=== PATIENT | male | born 1960 | race Caucasian/White ===

== ENCOUNTER 2016-12-04 18:10 | Emergency (ER) | payer MEDICARE ==
[~2016-12-04] VITALS: Ht 170.2 cm; Wt 48.6 kg
[~2016-12-04 18:10] MED LIST: CLON1TAB23 PO; VILA40TA PO
[2016-12-04 18:30] VITALS: BP 135/78
== END 2016-12-04 19:24 | disposition home or self-care (01) ==
LOC: ED 19:18
DX: J30.2 Other seasonal allergic rhinitis (principal); J45.909 Unspecified asthma, uncomplicated; K21.9 Gastro-esophageal reflux disease without esophagitis
CPT/HCPCS: 99282

== ENCOUNTER 2018-02-03 17:01 | Inpatient (IN) | payer MEDICARE ==
[~2018-02-03] VITALS: Ht 170.2 cm; Wt 61.9 kg
[2018-02-03] MEDS ORDERED: SODIUM CHLORIDE 0.9% 1,000 ML IV ONE (17:31)
[2018-02-03 17:54] LABS: BASOPHILS # (AUTO) 0.03 x10^3/uL (0-0.1); BASOPHILS % (AUTO) 1 % (0-1); EOSINOPHILS # (AUTO) 0.05 x10^3/uL (0-0.4); EOSINOPHILS % (AUTO) 1 % (1-7); LYMPHOCYTES # (AUTO) 2.13 x10^3/uL (1-3.4); LYMPHOCYTES % (AUTO) 32 % (22-44); MD NO; MEAN CORPUSCULAR HEMOGLOBIN 31.7 pg (27.5-34.5); MEAN CORPUSCULAR HGB CONC 34.4 g/dL (33.2-36.2); MEAN CORPUSCULAR VOLUME 92.2 fL (81-97); MEAN PLATELET VOLUME 7.6 fL (7.4-10.4); MONOCYTES # (AUTO) 0.48 x10^3/uL (0.2-0.8); MONOCYTES % (AUTO) 7 % (2-9); NEUTROPHILS # (AUTO) 3.92 x10^3/uL (1.8-6.8); NEUTROPHILS % (AUTO) 59 % (42-75); PLATELET COUNT 285 x10^3/uL (130-400); RED BLOOD COUNT 3.91 x10^6/uL (4.38-5.82); RED CELL DISTRIBUTION WIDTH 14.1 % (9.4-14.8)
[2018-02-03 18:05] LABS: ALANINE AMINOTRANSFERASE 19 U/L (12-78); ALBUMIN 3.1 g/dL (3.4-5.0); ANION GAP 6 mmol/L (5-15); CALCIUM 8.4 mg/dL (8.5-10.1); CHLORIDE 107 mmol/L (98-107); CREATININE 0.82 mg/dL (0.7-1.3)
[2018-02-03 18:32] LABS: ALKALINE PHOSPHATASE 59 U/L (45-117); BILIRUBIN,TOTAL 0.2 mg/dL (0.2-1.0); TOTAL PROTEIN 6.8 g/dL (6.4-8.2)
[2018-02-03] MEDS ORDERED: SODIUM CHLORIDE FLUSH 10ML SYR IVF ONE (19:00)
[2018-02-03 20:45] LABS: MICROSCOPIC NOT IND
[2018-02-03 20:53] LABS: CULTURE INDICATED? NO
[2018-02-03] MEDS ORDERED: [UNRECOGNIZED DRUG - CODE] PO (21:35)
[2018-02-03] MEDS ORDERED: [UNRECOGNIZED DRUG - OTHER] (21:35)
[2018-02-03] MEDS ORDERED: DOLU50TA PO (21:35)
[2018-02-03] MEDS ORDERED: FLUD0.1T PO (21:35)
[2018-02-03 21:45] VITALS: BP 110/68
[2018-02-03] MEDS: SODIUM CHLORIDE 1 GM TABLET PO SCH (22:46)
[2018-02-04] MEDS ORDERED: OMEP20TA9 PO (01:51)
[2018-02-04] MEDS ORDERED: METO5TAB57 PO (01:51)
[2018-02-04 02:25] VITALS: BP 111/65
[2018-02-04 07:05] VITALS: BP_SYST 100; BP_SYST 110; BP_DIAS 59; BP_DIAS 64
[2018-02-04] MEDS: FLUDROCORTISONE 0.1 MG TABLET PO SCH (07:57)
[2018-02-04] MEDS: CYANOCOBALAMIN 1,000 MCG TABLET PO SCH (07:57)
[2018-02-04] MEDS: SODIUM CHLORIDE 1 GM TABLET PO SCH ×3 (07:57→16:43)
[2018-02-04] MEDS: EMTRICITABINE/TENOFOV ALAFENAM 200-25 TAB PO SCH (07:58)
[2018-02-04] MEDS: DOLUTEGRAVIR 50MG TAB PO SCH (07:58)
[2018-02-04] MEDS: TEMPLATE NON-FORMULARY MED. (Vilazodone Hydrochloride** (Viibryd**) 40 MG) PO SCH (07:58)
[2018-02-04] MEDS: ENOXAPARIN 40 MG/0.4 ML SQ SCH (12:13)
[2018-02-04 14:34] VITALS: BP 107/61
[2018-02-04 19:10] VITALS: BP 94/56
[2018-02-05 00:35] VITALS: BP 102/59
[2018-02-05] MEDS: ASPIRIN 81 MG TABLET EC PO SCH (06:10)
[2018-02-05 06:25] VITALS: BP 98/54
[2018-02-05] MEDS: TEMPLATE NON-FORMULARY MED. (Vilazodone Hydrochloride** (Viibryd**) 40 MG) PO SCH (09:00)
[2018-02-05] MEDS: CYANOCOBALAMIN 1,000 MCG TABLET PO SCH (09:12)
[2018-02-05] MEDS: SODIUM CHLORIDE 1 GM TABLET PO SCH ×3 (09:12→16:38)
[2018-02-05] MEDS: DOLUTEGRAVIR 50MG TAB PO SCH (09:12)
[2018-02-05] MEDS: FLUDROCORTISONE 0.1 MG TABLET PO SCH (09:12)
[2018-02-05] MEDS: EMTRICITABINE/TENOFOV ALAFENAM 200-25 TAB PO SCH (09:12)
[2018-02-05] MEDS: ENOXAPARIN 40 MG/0.4 ML SQ SCH (09:13)
[2018-02-05 13:18] VITALS: BP 108/61
[2018-02-05] MEDS: NICOTINE 21 MG/24 HR PATCH.TD24 TD SCH (16:39)
[2018-02-05 19:36] VITALS: BP 104/60
[2018-02-06 01:03] VITALS: BP 109/70
[2018-02-06] MEDS: ASPIRIN 81 MG TABLET EC PO SCH (06:00)
[2018-02-06 06:40] VITALS: BP 111/68
[2018-02-06] MEDS: TEMPLATE NON-FORMULARY MED. (Vilazodone Hydrochloride** (Viibryd**) 40 MG) PO SCH (09:00)
[2018-02-06] MEDS ORDERED: MAGNESIUM HYDROXIDE 8%, 30ML UDC PO PRN (10:00)
[2018-02-06] MEDS: DOLUTEGRAVIR 50MG TAB PO SCH (10:19)
[2018-02-06] MEDS: EMTRICITABINE/TENOFOV ALAFENAM 200-25 TAB PO SCH (10:19)
[2018-02-06] MEDS: CYANOCOBALAMIN 1,000 MCG TABLET PO SCH (10:19)
[2018-02-06] MEDS: SODIUM CHLORIDE 1 GM TABLET PO SCH ×3 (10:19→16:30)
[2018-02-06] MEDS: NICOTINE 21 MG/24 HR PATCH.TD24 TD SCH (10:20)
[2018-02-06] MEDS: FLUDROCORTISONE 0.1 MG TABLET PO SCH (10:20)
[2018-02-06] MEDS: DOCUSATE 100 MG CAPSULE PO SCH ×2 (10:22→19:47)
[2018-02-06 12:45] VITALS: BP 98/62
[2018-02-06] MEDS: ENOXAPARIN 40 MG/0.4 ML SQ SCH (16:28)
[2018-02-06 19:48] VITALS: BP 108/51
[2018-02-07] MEDS ORDERED: DIPHENHYDRAMINE 25 MG CAPSULE PO ONE
[2018-02-07 04:56] VITALS: BP 114/68
[2018-02-07 07:43] VITALS: BP 118/71
[2018-02-07] MEDS: CYANOCOBALAMIN 1,000 MCG TABLET PO SCH (08:36)
[2018-02-07] MEDS: DOCUSATE 100 MG CAPSULE PO SCH ×2 (08:36→20:03)
[2018-02-07] MEDS: FLUDROCORTISONE 0.1 MG TABLET PO SCH (08:36)
[2018-02-07] MEDS: SODIUM CHLORIDE 1 GM TABLET PO SCH ×3 (08:36→17:24)
[2018-02-07] MEDS: EMTRICITABINE/TENOFOV ALAFENAM 200-25 TAB PO SCH (08:36)
[2018-02-07] MEDS: DOLUTEGRAVIR 50MG TAB PO SCH (08:36)
[2018-02-07] MEDS: NICOTINE 21 MG/24 HR PATCH.TD24 TD SCH (08:37)
[2018-02-07] MEDS: TEMPLATE NON-FORMULARY MED. (Vilazodone Hydrochloride** (Viibryd**) 40 MG) PO SCH (09:00)
[2018-02-07] MEDS: OMEPRAZOLE 20 MG CAPSULE.DR PO SCH (10:22)
[2018-02-07] MEDS: ENOXAPARIN 40 MG/0.4 ML SQ SCH (12:19)
[2018-02-07 13:14] VITALS: BP 106/66
[2018-02-07 19:02] VITALS: BP 111/62
[2018-02-07] MEDS: ACETAMINOPHEN 325 MG TABLET PO PRN (20:03)
[2018-02-08 03:00] VITALS: BP 118/60
[2018-02-08 07:04] VITALS: BP 110/69
[2018-02-08] MEDS: CYANOCOBALAMIN 1,000 MCG TABLET PO SCH (08:55)
[2018-02-08] MEDS: ENOXAPARIN 40 MG/0.4 ML SQ SCH (08:55)
[2018-02-08] MEDS: DOLUTEGRAVIR 50MG TAB PO SCH (08:55)
[2018-02-08] MEDS: EMTRICITABINE/TENOFOV ALAFENAM 200-25 TAB PO SCH (08:55)
[2018-02-08] MEDS: DOCUSATE 100 MG CAPSULE PO SCH ×2 (08:55→22:09)
[2018-02-08] MEDS: OMEPRAZOLE 20 MG CAPSULE.DR PO SCH (08:55)
[2018-02-08] MEDS: SODIUM CHLORIDE 1 GM TABLET PO SCH ×3 (08:55→16:56)
[2018-02-08] MEDS: NICOTINE 21 MG/24 HR PATCH.TD24 TD SCH (08:56)
[2018-02-08] MEDS: FLUDROCORTISONE 0.1 MG TABLET PO SCH (08:59)
[2018-02-08] MEDS: TEMPLATE NON-FORMULARY MED. (Vilazodone Hydrochloride** (Viibryd**) 40 MG) PO SCH (08:59)
[2018-02-08] MEDS: ACETAMINOPHEN 325 MG TABLET PO PRN ×2 (12:07→23:23)
[2018-02-08 13:21] VITALS: BP 110/71
[2018-02-08] MEDS ORDERED: DOCU-131 PO (15:38)
[2018-02-08] MEDS ORDERED: CYAN10005 PO (15:38)
[2018-02-08 19:41] VITALS: BP 113/63
[2018-02-09 01:04] VITALS: BP 105/62
[2018-02-09 08:05] VITALS: BP 123/68
[2018-02-09] MEDS: DOCUSATE 100 MG CAPSULE PO SCH (09:11)
[2018-02-09] MEDS: EMTRICITABINE/TENOFOV ALAFENAM 200-25 TAB PO SCH (09:11)
[2018-02-09] MEDS: OMEPRAZOLE 20 MG CAPSULE.DR PO SCH (09:11)
[2018-02-09] MEDS: TEMPLATE NON-FORMULARY MED. (Vilazodone Hydrochloride** (Viibryd**) 40 MG) PO SCH (09:11)
[2018-02-09] MEDS: FLUDROCORTISONE 0.1 MG TABLET PO SCH (09:11)
[2018-02-09] MEDS: DOLUTEGRAVIR 50MG TAB PO SCH (09:11)
[2018-02-09] MEDS: SODIUM CHLORIDE 1 GM TABLET PO SCH ×2 (09:11→12:31)
[2018-02-09] MEDS: NICOTINE 21 MG/24 HR PATCH.TD24 TD SCH (09:12)
[2018-02-09] MEDS: CYANOCOBALAMIN 1,000 MCG TABLET PO SCH (09:12)
[2018-02-09] MEDS: ACETAMINOPHEN 325 MG TABLET PO PRN (09:15)
[2018-02-09] MEDS: ENOXAPARIN 40 MG/0.4 ML SQ SCH (12:23)
[2018-02-09] MEDS ORDERED: DOLU50TA PO (13:28)
[2018-02-09] MEDS ORDERED: EMTR1TAB14 PO (13:28)
== END 2018-02-09 12:50 | DRG 640 ==
LOC: ED 17:55 → EDIP 19:54 → 3NE 21:21
PROVIDERS: ADMIT Internal Medicine; ATTEND Internal Medicine
DX: R62.7 Adult failure to thrive (principal); B20 Human immunodeficiency virus [HIV] disease; C43.9 Malignant melanoma of skin, unspecified; C79.9 Secondary malignant neoplasm of unspecified site; E44.1 Mild protein-calorie malnutrition; D64.9 Anemia, unspecified; F02.80 Dementia in other diseases classified elsewhere, unspecified severity, without behavioral disturbance, psychotic disturbance, mood disturbance, and anxiety; D18.00 Hemangioma unspecified site; I95.1 Orthostatic hypotension; E53.8 Deficiency of other specified B group vitamins; F17.200 Nicotine dependence, unspecified, uncomplicated; G89.29 Other chronic pain; J45.909 Unspecified asthma, uncomplicated; K21.9 Gastro-esophageal reflux disease without esophagitis; Z86.73 Personal history of transient ischemic attack (TIA), and cerebral infarction without residual deficits; Z63.8 Other specified problems related to primary support group; K59.00 Constipation, unspecified; Z79.82 Long term (current) use of aspirin; Z91.14 Patient's other noncompliance with medication regimen
CPT/HCPCS: 36415; 70450; 71045; 72128; 80053; 81003; 82306; 82607; 83735; 84134; 84443; 85025; 86361; 87536; 93005; 99285; J1650; J7030; Q0163

== ENCOUNTER 2018-04-21 11:59 | Emergency (ER) | payer MEDICARE ==
[~2018-04-21] VITALS: Ht 177.8 cm; Wt 54.5 kg
[~2018-04-21 11:59] MED LIST changes: +CYAN10005 PO; +DOCU-131 PO; +DOLU50TA PO; +EMTR1TAB14 PO; +FLUD0.1T PO; +METO5TAB57 PO; +OMEP20TA9 PO; +[UNRECOGNIZED DRUG - CODE] PO; +[UNRECOGNIZED DRUG - OTHER]
[2018-04-21 12:27] LABS: BASOPHILS # (AUTO) 0.03 x10^3/uL (0-0.1); BASOPHILS % (AUTO) 0 % (0-1); EOSINOPHILS # (AUTO) 0.01 x10^3/uL (0-0.4); EOSINOPHILS % (AUTO) 0 % (1-7); LYMPHOCYTES # (AUTO) 2.08 x10^3/uL (1-3.4); LYMPHOCYTES % (AUTO) 18 % (22-44); MD NO; MEAN CORPUSCULAR HGB CONC 34.6 g/dL (33.2-36.2); MEAN CORPUSCULAR VOLUME 89.8 fL (81-97); MEAN PLATELET VOLUME 7.7 fL (7.4-10.4); MONOCYTES # (AUTO) 0.71 x10^3/uL (0.2-0.8); MONOCYTES % (AUTO) 6 % (2-9); NEUTROPHILS # (AUTO) 8.92 x10^3/uL (1.8-6.8); NEUTROPHILS % (AUTO) 76 % (42-75); PLATELET COUNT 298 x10^3/uL (130-400); RED BLOOD COUNT 4.25 x10^6/uL (4.38-5.82); RED CELL DISTRIBUTION WIDTH 14.8 % (9.4-14.8)
[2018-04-21] MEDS ORDERED: SODIUM CHLORIDE FLUSH 10ML SYR IVF ONE (12:30)
[2018-04-21] MEDS ORDERED: SODIUM CHLORIDE 0.9% 1,000ML IVBOLUS ONE ×2 (12:30→13:00)
[2018-04-21 12:38] LABS: ALANINE AMINOTRANSFERASE 29 U/L (12-78); ALBUMIN 3.8 g/dL (3.4-5.0); ANION GAP 16 mmol/L (5-15); CALCIUM 9.2 mg/dL (8.5-10.1); CHLORIDE 101 mmol/L (98-107); CREATININE 1.33 mg/dL (0.7-1.3)
[2018-04-21 12:41] LABS: ALKALINE PHOSPHATASE 74 U/L (45-117); BILIRUBIN,TOTAL 0.7 mg/dL (0.2-1.0); CREATINE KINASE, TOTAL 732 U/L (39-308); TOTAL PROTEIN 8.1 g/dL (6.4-8.2)
[2018-04-21] MEDS ORDERED: DEXTROSE 50%, 50ML SYRINGE IVPush ONE (13:30)
[2018-04-21 14:39] VITALS: BP 124/67
[2018-04-21 15:45] LABS: MICROSCOPIC AUTO
[2018-04-21 15:59] LABS: AMPHETAMINE SCREEN, URINE Positive (Negative); BARBITURATE SCREEN, URINE Negative (Negative); BENZODIAZEPINE SCREEN, URINE Negative (Negative); CANNABINOID SCREEN, URINE Negative (Negative); COCAINE SCREEN, URINE Negative (Negative)
[2018-04-21 16:01] LABS: METHADONE SCREEN, URINE Negative (Negative); OPIATE SCREEN, URINE Negative (Negative)
[2018-04-21 16:04] LABS: CULTURE INDICATED? NO
== END 2018-04-21 16:43 | disposition home or self-care (01) ==
LOC: ED 13:16
DX: E86.0 Dehydration (principal); E16.2 Hypoglycemia, unspecified; B20 Human immunodeficiency virus [HIV] disease; K21.9 Gastro-esophageal reflux disease without esophagitis; J45.909 Unspecified asthma, uncomplicated; Z88.8 Allergy status to other drugs, medicaments and biological substances; Z86.73 Personal history of transient ischemic attack (TIA), and cerebral infarction without residual deficits; Z85.048 Personal history of other malignant neoplasm of rectum, rectosigmoid junction, and anus; Z79.899 Other long term (current) drug therapy
CPT/HCPCS: 36415; 80053; 80307; 81001; 82550; 82962; 83735; 85025; 93005; 96360; 96361; 99285; J7030

== ENCOUNTER 2018-07-09 14:45 | Emergency (ER) | payer MEDICARE ==
[~2018-07-09] VITALS: Ht 170.2 cm; Wt 60.2 kg
[2018-07-09 18:25] VITALS: BP 129/77
== END 2018-07-09 18:27 | disposition home or self-care (01) ==
LOC: ED 18:11
DX: S02.2XXA Fracture of nasal bones, initial encounter for closed fracture (principal); S02.40DA Maxillary fracture, left side, initial encounter for closed fracture; K21.9 Gastro-esophageal reflux disease without esophagitis; F17.200 Nicotine dependence, unspecified, uncomplicated; Z86.73 Personal history of transient ischemic attack (TIA), and cerebral infarction without residual deficits; Z21 Asymptomatic human immunodeficiency virus [HIV] infection status; X58.XXXA Exposure to other specified factors, initial encounter; Y93.89 Activity, other specified; Y99.8 Other external cause status; Y92.009 Unspecified place in unspecified non-institutional (private) residence as the place of occurrence of the external cause
CPT/HCPCS: 70486; 99284

== ENCOUNTER 2019-03-21 07:49 | Emergency (ER) | payer MEDICARE ==
[~2019-03-21] VITALS: Ht 170.2 cm; Wt 52.5 kg
--- NOTE | 2019-03-21 07:49 | NUR ---
[place] & c/o right hip/bilat foot pain with "another episode of disassociative amnesia", AOx4 & denies injury but does not recall why found in current circumstances; BG 101, no other interventions [employer] per EMS; pt alking to self at times but responds approp to staff, NAD, comfort measures provided, call light within reach.
--- NOTE | 2019-03-21 09:01 | NUR ---
pt laying on gurney with eyes closed, talking to self at times but responds approp to staff, NAD, comfort measures provided, call light within reach.
[2019-03-21 10:06] VITALS: BP 97/37
--- NOTE | 2019-03-21 10:22 | NUR ---
Patient given clothes, bus pass, discharge instructions and Rx; pt also advised to remove "cock rings" for safety, they have confirmed that they understand the instructions. Patient ambulatory with steady gait.
== END 2019-03-21 10:26 | disposition home or self-care (01) ==
LOC: ED 10:22
DX: L03.031 Cellulitis of right toe (principal); F15.10 Other stimulant abuse, uncomplicated; Z72.9 Problem related to lifestyle, unspecified; J45.909 Unspecified asthma, uncomplicated; K21.9 Gastro-esophageal reflux disease without esophagitis; Z86.73 Personal history of transient ischemic attack (TIA), and cerebral infarction without residual deficits
CPT/HCPCS: 99283

== ENCOUNTER 2019-11-02 16:05 | Emergency (ER) | payer MEDICARE ==
[~2019-11-02] VITALS: Ht 182.9 cm; Wt 73.0 kg
[~2019-11-02 16:05] MED LIST changes: +CYAN-27 PO; -CYAN10005 PO
[2019-11-02 16:11] VITALS: BP 143/62
--- NOTE | 2019-11-02 16:25 | NUR ---
PT STATES THAT HIS LYMPHNODES ARE SWOLLEN AND PAINFUL TO THE TOUCH. DENIES AYN OTHER S/S OR C/O AT THIS TIME. ABLE TO SWALLOW FREELY, PT NOT TALKING DUE TO PAIN. USING NOTEPAD FOR COMMUNICATION. CALL LIGHT IN REACH.
[2019-11-02] MEDS ORDERED: SODIUM CHLORIDE FLUSH 10ML SYR IVF ONE (17:00)
[2019-11-02] MEDS ORDERED: SODIUM CHLORIDE 0.9% 1,000ML IVBOLUS ONE (17:00)
[2019-11-02] MEDS ORDERED: MORPHINE SULFATE 4 MG/ML, 1ML IVPush PRN (17:00)
[2019-11-02 17:14] LABS: BASOPHILS # (AUTO) 0.04 x10^3/uL (0-0.1); BASOPHILS % (AUTO) 0 % (0-1); EOSINOPHILS # (AUTO) 0.01 x10^3/uL (0-0.4); EOSINOPHILS % (AUTO) 0 % (1-7); LYMPHOCYTES # (AUTO) 2.02 x10^3/uL (1-3.4); LYMPHOCYTES % (AUTO) 13 % (22-44); MD NO; MEAN CORPUSCULAR HEMOGLOBIN 31.2 pg (27.5-34.5); MEAN CORPUSCULAR HGB CONC 34.1 g/dL (33.2-36.2); MEAN CORPUSCULAR VOLUME 91.5 fL (81-97); MEAN PLATELET VOLUME 7.1 fL (7.4-10.4); MONOCYTES # (AUTO) 0.76 x10^3/uL (0.2-0.8); MONOCYTES % (AUTO) 5 % (2-9); NEUTROPHILS # (AUTO) 12.53 x10^3/uL (1.8-6.8); NEUTROPHILS % (AUTO) 82 % (42-75); PLATELET COUNT 344 x10^3/uL (130-400); RED BLOOD COUNT 4.07 x10^6/uL (4.38-5.82); RED CELL DISTRIBUTION WIDTH 13.2 % (9.4-14.8)
[2019-11-02 17:23] LABS: ALANINE AMINOTRANSFERASE 18 U/L (12-78); ALBUMIN 2.7 g/dL (3.4-5.0); ANION GAP 6 mmol/L (5-15); CALCIUM 8.9 mg/dL (8.5-10.1); CHLORIDE 103 mmol/L (98-107)
[2019-11-02 17:25] LABS: ALKALINE PHOSPHATASE 97 U/L (45-117); BILIRUBIN,TOTAL 0.3 mg/dL (0.2-1.0); TOTAL PROTEIN 7.7 g/dL (6.4-8.2)
[2019-11-02] MEDS ORDERED: CEFTRIAXONE 1,000 MG IM ONE (18:30)
[2019-11-02] MEDS ORDERED: CEFTRIAXONE 250 MG ONE (18:36)
[2019-11-02] MEDS ORDERED: KETOROLAC 30 MG/1 ML ONE (18:36)
[2019-11-02] MEDS ORDERED: LIDOCAINE-MPF 1%, 5ML ONE (18:37)
[2019-11-02 18:46] LABS: MICROSCOPIC AUTO
[2019-11-02 18:49] LABS: CULTURE INDICATED? YES
[2019-11-02] MEDS ORDERED: KETOROLAC 30 MG/1 ML IM ONE (19:00)
== END 2019-11-02 19:14 | disposition home or self-care (01) ==
LOC: ED 19:05
DX: J02.0 Streptococcal pharyngitis (principal); N45.3 Epididymo-orchitis; R94.31 Abnormal electrocardiogram [ECG] [EKG]; R49.0 Dysphonia
CPT/HCPCS: 36415; 71045; 72220; 76870; 80053; 81001; 83605; 85025; 87086; 87880; 93005; 96372; 99285; J0696; J1885; 87491; 87591